=== PATIENT | male | born 1960 | race Caucasian/White ===

== ENCOUNTER 2023-09-08 21:55 | Emergency (ER) | payer MEDICAID, SELFPAY ==
[2023-09-08 21:56] VITALS: BP 137/77; PULSE 88; RESP 19; TEMP 36.8; O2SAT 91; BMI 20.2
--- NOTE | 2023-09-08 22:11 | XRR_ITS ---
PROCEDURE INFORMATION: Exam: XR Left Shoulder Exam date and time: 09/08/2023 10:46 PM Age: 62 years old Clinical indication: Pain; Shoulder; Left; Additional info: Pain popping no trauma TECHNIQUE: Imaging protocol: Radiologic exam of the left shoulder. Views: 2 or more views. COMPARISON: No relevant prior studies available. 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 Moderate degenerative disease of the lower cervical spine. Mild degenerative disease of the left glenohumeral joint. Irregularities of the greater tuberosity, suggestive of rotator cuff disease. Lungs: Calcified granuloma in the left upper lung zone. Vasculature: Aortic arch calcifications. Soft tissues: Normal. XR/XR shoulder LT min 2V* [id number] IMPRESSION: No acute fracture or dislocation.
--- NOTE | 2023-09-08 22:40 | ED_ITS ---
HPI - Extremity Problem General: Chief complaint: Extremity Problem,Nontraumatic Stated complaint: SHOULDER/BACK PAIN Time Seen by Provider: 09/08/23 22:07 History of Present Illness: Patient presents to the ER with complaints of left shoulder pain. He says been popping lately and hurting more than normal. But hurting more in the joint sometimes radiates down into his ribs or sometimes down his arm. Patient has no known recent injury, patient does admit to having several alcoholic drinks tonight Review of Systems General: Reports: 10 or more systems reviewed and unremarkable except in HPI and below Physical Exam Const: COMMON NORMALS: no acute distress, average body habitus, patient rohan ented x3, no limitations, healthy appearing, alert and well nourished HENMT: COMMON NORMALS: normocephalic, atraumatic, hearing grossly normal cindy aterally, external ears normal, Normal external nose present, moist oral mucous membranes and oropharynx normal HEAD & SCALP: normocephalic and atraumatic NOSE: Normal external nose present EXTERNAL EAR: Yes external ears normal Neck/C-Spine: COMMON NORMALS: no JVD Chest: COMMONS NORMALS: normal inspection of the chest and normal palpation of entire chest wall Resp: COMMON NORMALS: normal respiratory effort, No retractions, No use of accessory muscles and clear to auscultation bilaterally AUSCULTATION: clear to auscultation bilaterally Cardio: COMMON NORMALS: no JVD, regular rate, regular rhythm, S1 normal heart sound present, S2 normal heart sound present, No gallops present (Cardio), No clicks present (Cardio), No murmurs present (Cardio) and No rub (Cardio) RATE: regular rate RHYTHM: regular rhythm HEART SOUNDS: S1 normal heart sound present and S2 normal heart sound present GI: COMMON NORMALS: Normal to inspection, nondistended, normoactive bowel sounds present, Soft to palpation, non-tender, No hepatosplenomegaly present and no masses PALPATION: Yes Soft to palpation and Yes No hepatosplenomegaly present Extremity: NARRATIVE EXTREMITY EXAM: Good range of motion left upper extremity at the shoulder joint, mild tenderness to palpation over anterior joint region no obvious crepitus or deformity Neuro: COMMON NORMALS: patient oriented x3 SENSORIUM/ORIENTATION: Yes alert Course Vital Signs: Vital signs: Vital Signs Temperature 98.2 F 09/08/23 21:56 Pulse Rate 75 05/24/24 01:04 Respiratory Rate 18 09/09/23 01:04 Blood Pressure 129/78 09/08/23 23:50 Pulse Oximetry 99 09/09/23 01:04 Oxygen Delivery Me thod Room Air 09/08/23 21:56 MDM - Extremity (Nontraumatic) Medical Decision Making X-ray of the left shoulder did not show any fracture or dislocation, patient be discharged home to follow-up with his PCP. Differential Diagnosis Unlikely herpes zoster, gout, cellulitis, superficial thrombophlebitis, deep venous thrombosis of upper extremity, lower extremity edema or deep vein thrombosis of lower extremity Medical Records I reviewed the patient's medical records. Lab Data I reviewed the patient's lab results. Radiology Impressions Shoulder X-Ray 09/08/23 22:11 IMPRESSION: No acute fracture or dislocation. All radiology interpretation(s) finalized by discharge Discharge Plan Discharge Patient Disposition: Home Clinical Impression: Acute pain of left shoulder Condition: Stable Discharge Orders: Discharge ED (Routine); Ordered 09/09/23 Ordered By: Kyree Slater Patient Instructions: Shoulder Pain (ED) Activity Restrictions/Additional Instructions: The x-ray of your left shoulder did not show any acute fractures or dislocations. Please follow-up with your family proximal physician within next 7 days for further evaluation and treatment as needed. Coding Level of Care Code ED [employer] Operator for Marvel Martinez
[2023-09-08 22:50] VITALS: BP 124/67; PULSE 87; RESP 18; O2SAT 97
[2023-09-08 23:50] VITALS: BP 129/78; PULSE 99; RESP 18; O2SAT 99
[2023-09-09 01:04] VITALS: PULSE 75; RESP 18; O2SAT 99
== END 2023-09-09 01:22 | disposition home or self-care (01) ==
PROVIDERS: Emergency Provider Emergency Medicine
DX: M25.512 Pain in left shoulder (principal)
CPT/HCPCS: 73030; 99283